=== PATIENT | male | born 1995 | race Caucasian/White ===

== ENCOUNTER 2017-05-03 13:44 | Emergency (ER) | payer SELFPAY ==
[2017-05-03 13:55] VITALS: BP 148/65
--- NOTE | 2017-05-03 15:34 | ERNOTE ---
Upper Extremity HPI - Narrative Date of Service: 05/03/17 - General Extremities Pain Location: hand: left Time Seen by Provider: 05/03/17 14:12 Source: patient Exam Limitations: no limitations - Immun/Allergies/Home Medications Immunizations: IMMUNIZATION HX Immunizations Up to Date Yes History of Influenza Vaccine No Hx Pneumococcal Vaccination No Allergies/Adverse Reactions: Allergies Allergy/AdvReac Type Severity Reaction Status Date / Time No Known Allergies Allergy Verified 05/03/17 13:55 Home Medications: HOME MEDICATIONS predniSONE [Prednisone] 1 tab PO DAILY #3 tab 05/03/17 [Last Taken Unknown] - History of Present Illness Narrative: Pt. comes in with c/oL hand tingling for 18 hours. Pt. denies any injury or activity prior to incident. 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 Pt. denieas any alleviating or aggravating factors or prehospital treatment. Occurred: yesterday Location of Incident: home Severity: mild Method of Injury: Reports: no apparent injury Modifying Factors - (Improves): Reports: other - denies Modifying Factors - (Worsens): Reports: other - denies Associated Symptoms: Reports: tingling - L hand. Denies: loss of power (rt arm) , loss of power (lt arm) Prior Treament: Denies: recently seen, treated by physician, recently hospitalized, similar symptoms before, currently on antibiotics Review of Systems - Review of Systems Constitutional: Present: no symptoms reported. Absent: fever, chills, weakness , fatigue, malaise EYE: Present: no symptoms reported. Absent: eye pain, double vision ENT: Present: no symptoms reported. Absent: nose pain, nose congestion, nasal drainage Respiratory: Present: no symptoms reported. Absent: shortness of breath, cough , wheezing Cardiology: Present: no symptoms reported. Absent: chest pain, palpitations, edema Gastrointestinal/Abdominal: Present: no symptoms reported Genitourinary: Present: no symptoms reported. Absent: frequency, decreased urinary output Musculoskeletal: Present: no symptoms reported. Absent: back pain, joint pain Skin: Present: no symptoms reported. Absent: rash, change in color, change in hair/nails Neurological: Present: tingling - L hand Endocrine: Present: no symptoms reported All Other Systems: All systems neg except as marked - Patient's Past Medical History Patient History - Medical: No pertinent hx Patient History - Cardiac/Respiratory: Other Patient History - Cancer: No Hx of Cancer Patient History - Surgical Procedures: T & A Patient History - Other: None - Social History Living Situations: home Abuse History: No History of abuse Psych History: Hx of Anxiety Smoking Status: Current every day smoker Have you smoked in the past 12 months: Yes Do you dip or chew tobacco: No Alcohol Use: occasionally Drug Use: none - Immunizations Immunizations Up to Date: Yes Hx Pneumococcal Vaccination: No History of Influenza Vaccine: No Physical Exam - Physical Exam General Appearance: Present: wd/wn, alert, no apparent distress Head Exam: Present: normal inspection, no evidence of injury, no tenderness w palpation Eye Exam: Normal inspection: bilateral Ears, Nose, Throat: Present: normal ENT inspection, normal pharynx Neck: Present: normal inspection, nontender, supple, full range of motion. Absent: lymphadenopathy (R), lymphadenopathy (L) Respiratory: Present: no respiratory distress, normal breath sounds, no accessory muscle use, chest nontender, lungs clear Cardiovascular/Chest: Present: regular rate, rhythm, no murmur, normal peripheral pulses Gastrointestinal/Abdominal: Present: normal bowel sounds, nontender, nondistended, soft, no organomegaly Back Exam: Present: normal inspection Extremity Exam: Present: non-tender, normal range of motion, no edema, other - tingling to L fourth and fifth fingers and medial hand Neurological Exam: Present: alert, oriented, normal mood/affect, no motor/ sensory deficits Skin Exam: Present: normal color, warm/dry. Absent: pallor, skin rash ED Progress - Date and Time Seen: Date and Time: 05/03/17 15:26 feel that this is ulnar entrapment since tinnels test is positive so will start pt. on steroid burst for antiinflammatory property and have him follow up with his primary provider in 2-3 days if no improvement. - Vital Signs Patient's Vital Signs:: I have reviewed the patient's vital signs. Vital Signs: Vital Signs 05/03/17 13:51 Temperature 37.3 C Pulse Rate 111 H Respiratory 16 Rate Blood Pressure 148/65 O2 Sat by Pulse 99 Oximetry - X-Ray X-Ray #1 X-Ray: wrist Interpretation: Reviewed by me X-ray Comments: no acute osseous abnormality or soft tissue swelling - Progress/Reassessment Chief Complaint: Upper Extremity Injury/Problem Departure Clinical Impression: Ulnar nerve compression Qualifiers: Laterality: left Qualified Code(s): G56.22 - Lesion of ulnar nerve, left upper limb - Departure Disposition: Home self-care Condition: Good Instructions: Ulnar Nerve Contusion With Rehab-SportsMed Additional Instructions: Please take medications for three days and if not improved by day 3 please follow up with primary provider to discuss referreal for further tx. Prescriptions: predniSONE [Prednisone] 1 tab PO DAILY #3 tab
== END 2017-05-03 15:57 | disposition home or self-care (01) ==
LOC: ER 13:44
DX: G56.22 Lesion of ulnar nerve, left upper limb (principal); F17.200 Nicotine dependence, unspecified, uncomplicated